=== PATIENT | male | born 1945 | race Caucasian/White ===

== ENCOUNTER 2016-08-24 07:06 | Emergency (ER) | payer MEDICARE ==
[2016-08-24 07:36] VITALS: BP 146/78
--- NOTE | 2016-08-24 07:51 | UC ---
Respiratory Complaint HPI - HPI Summary HPI Summary: 1 WEEK OF COUGH, CONGESTION, BODY ACHES AND FEVER. TMAX 103 A COUPLE OF DAYS AGO. WAS 101 LAST NIGHT. LAST NIGHT LOST HIS VOICE AND STARTED FEELING LIKE THERE WAS SOMETHING IN HIS THROAT. COMPLAINS OF DIFFICULTY SWALLOWING. FEELS LIKE HIS SALIVA IS POOLING IN HIS MOUTH. DENIES ANY PAIN. NO AIRWAY COMPROMISE CLINICALLY. - History of Current Complaint Chief Complaint: UCRespiratory Stated Complaint: THROAT Time Seen by Provider: 08/24/16 07:41 Hx Obtained From: Patient Onset/Duration: Gradual Onset, Lasting Days, Still Present Timing: Constant Severity Initially: Moderate Severity Currently: Moderate Pain Intensity: 0 Pain Scale Used: 0-10 Numeric Character: Cough: Nonproductive Aggravating Factors: Nothing Alleviating Factors: Nothing Associated Signs And Symptoms: Positive: Fever, URI, Nasal Congestion, Hoarseness - Allergies/Home Medications Allergies/Adverse Reactions: Allergies Allergy/AdvReac Type Severity Reaction Status Date / Time No Known Allergies Allergy Verified 08/24/16 07:25 PMH/Surg Hx/FS Hx/Imm Hx Previously Healthy: Yes - Surgical History Surgical History: Yes Surgery Procedure, Year, and Place: LEFT knee - Family History Known Family History: Negative: Hypertension - Social History Alcohol Use: None Substance Use Type: None Smoking Status (MU): Never Smoked Tobacco - Immunization History Most Recent Influenza Vaccination: 2015 Most Recent Tetanus Shot: 10/2015 Most Recent Pneumonia Vaccination: 10/2015 Review of Systems Constitutional: Fever ENT: Nasal Discharge Respiratory: Cough Cardiovascular: Negative Gastrointestinal: Negative Musculoskeletal: Myalgia All Other Systems Reviewed And Are Negative: Yes Physical Exam Triage Information Reviewed: Yes Appearance: Well-Appearing, No Pain Distress, Well-Nourished Vital Signs: Initial Vital Signs Temp 97.6 F 08/24/16 07:26 Pulse 75 08/24/16 07:26 Resp 18 08/24/16 07:26 BP 146/78 08/24/16 07:26 Pulse Ox 99 08/24/16 07:26 Vital Signs Reviewed: Yes Eyes: Positive: Conjunctiva Clear ENT: Positive: Hearing grossly normal, Pharynx normal, TMs normal, Muffled/ hoarse voice Neck: Positive: Supple, Nontender, No Lymphadenopathy Respiratory Exam: Normal Cardiovascular Exam: Normal Abdomen Description: Positive: Soft Musculoskeletal: Positive: No Edema Neurological: Positive: Alert Psychological: Positive: Age Appropriate Behavior Skin: Negative: rashes UC Diagnostic Evaluation - Laboratory O2 Sat by Pulse Oximetry: 99 - Radiology Xray Interpretation: No Acute Changes - SOFT TISSUE NECK XRAY Radiology Interpretation Completed By: Radiologist Respiratory Course/Dx - Course Course Of Treatment: XRAY UNREMARKABLE. GIVEN SYMPTOMS RECOMMEND ENT FOR FURTHER EVAL AND MANAGEMENT. CALLED DR. TOLENTINO'S OFFICE. THEY ARE EXPECTING HIM DIRECTLY. - Differential Dx/Diagnosis Provider Diagnoses: LARYNGITIS/VIRAL SYNDROME Discharge - Discharge Plan Condition: Stable Disposition: HOME Patient Education Materials: Laryngitis (ED), Viral Syndrome (ED) Referrals: Negrito Tolentino MD [Medical Doctor] - (GO DIRECTLY TO DR. TOLENTINO'S OFFICE FROM HERE. HE WILL SEE YOU THIS MORNING.) Cade Coronado MD [Primary Care Provider] - If Needed Additional Instructions: XRAY UNREMARKABLE. GIVEN YOUR SENSATION OF SALIVA POOLING AND HOARSENESS WILL SEND TO ENT FOR FURTHER EVAL AND MANAGEMENT. GO DIRECTLY TO DR. TOLENTINO'S OFFICE FROM HERE.
--- NOTE | 2016-08-24 08:31 | RAD ---
HISTORY: Dysphagia, hoarseness COMPARISONS: None VIEWS: 2, frontal and lateral views of the neck FINDINGS: Degenerative changes are noted of the spine. The prevertebral soft tissues are normal. The epiglottis is normal. There is continuous air column from the pharynx through the trachea. The lung apices are clear IMPRESSION: UNREMARKABLE SOFT TISSUES OF THE NECK
== END 2016-08-24 08:59 | disposition home or self-care (01) ==
LOC: UCCORT 07:06
DX: J04.0 Acute laryngitis (principal)
CPT/HCPCS: 70360; 99211; G0463

== ENCOUNTER 2016-12-29 08:11 | Emergency (ER) | payer MEDICARE ==
[2016-12-29 08:22] VITALS: BP 121/69
--- NOTE | 2016-12-29 09:05 | UC ---
Respiratory Complaint HPI - HPI Summary HPI Summary: COUGH X 3 WEEKS PRODUCTIVE WITH YELLOW SPUTUM + CHEST CONGESTION NO FEVER, NO CHILLS - History of Current Complaint Chief Complaint: UCRespiratory Stated Complaint: CHEST CONGESTION Time Seen by Provider: 12/29/16 08:39 Hx Obtained From: Patient Onset/Duration: Gradual Onset, Still Present Timing: Constant Severity Initially: Moderate Severity Currently: Moderate Pain Intensity: 0 Pain Scale Used: 0-10 Numeric Character: Cough: Productive - YELLOW Aggravating Factors: Exertion Alleviating Factors: Nothing Associated Signs And Symptoms: Positive: URI, Nasal Congestion. Negative: Fever , Chills, Pleuritic Chest Pain, Wheezing, Hemoptysis, Dizziness, Calf Pain, Calf Swelling - Allergies/Home Medications Allergies/Adverse Reactions: Allergies Allergy/AdvReac Type Severity Reaction Status Date / Time "antibiotic" Allergy Hives Uncoded 12/29/16 08:21 Home Medications: Home Medications GuaiFENesin DM* [Robitussin DM*] 10 ml PO Q6H PRN 12/29/16 [History Confirmed ] PMH/Surg Hx/FS Hx/Imm Hx Previously Healthy: Yes - Surgical History Surgical History: Yes Surgery Procedure, Year, and Place: Left Knee Cartiladge Removal, ~1965 - Family History Known Family History: Negative: Hypertension, Diabetes - Social History Alcohol Use: None Substance Use Type: None Smoking Status (MU): Never Smoked Tobacco - Immunization History Most Recent Influenza Vaccination: Not the 2016/2017 Season Most Recent Tetanus Shot: 10/2015 Most Recent Pneumonia Vaccination: 10/2015 Review of Systems Constitutional: Negative Skin: Negative Eyes: Negative Respiratory: Cough Cardiovascular: Negative Gastrointestinal: Negative Is Patient Immunocompromised?: No All Other Systems Reviewed And Are Negative: Yes Physical Exam Triage Information Reviewed: Yes Appearance: Well-Appearing, No Pain Distress, Well-Nourished Vital Signs: Initial Vital Signs Temp 98.3 F 12/29/16 08:16 Pulse 68 12/29/16 08:16 Resp 16 12/29/16 08:16 BP 121/69 12/29/16 08:16 Pulse Ox 100 12/29/16 08:16 Vital Signs Reviewed: Yes Eyes: Positive: Conjunctiva Clear ENT: Positive: Normal ENT inspection, Hearing grossly normal, Pharynx normal Neck: Positive: Supple, Nontender, No Lymphadenopathy Respiratory: Positive: Chest non-tender, Lungs clear, Normal breath sounds, No respiratory distress Cardiovascular: Positive: RRR, No Murmur, Pulses Normal Abdominal Exam: Normal Skin Exam: Normal UC Diagnostic Evaluation - Laboratory O2 Sat by Pulse Oximetry: 100 Respiratory Course/Dx - Differential Dx/Diagnosis Provider Diagnoses: BRONCHITIS Discharge - Discharge Plan Condition: Stable Disposition: HOME Prescriptions: Benzonatate [TESSALON 200 MG CAP] 200 mg PO Q8H #21 cap Patient Education Materials: Acute Bronchitis (ED) Referrals: Cade Coronado MD [Primary Care Provider] - If Needed
== END 2016-12-29 08:50 | disposition home or self-care (01) ==
LOC: UCCORT 08:11
DX: J40 Bronchitis, not specified as acute or chronic (principal); R09.81 Nasal congestion; Z88.1 Allergy status to other antibiotic agents
CPT/HCPCS: 99212; G0463